=== PATIENT | female | born 1985 | race Caucasian/White ===

== ENCOUNTER 2017-10-12 21:50 | Emergency (ER) | payer OTHER ==
[~2017-10-12] VITALS: Ht 154.9 cm; Wt 104.5 kg
[~2017-10-12 21:50] MED LIST: BACTRIM DS 8001 TAB PO; CELEXA10 MG PO; CEPHALEXIN500 M1 PO; CHEWABLE CALCI500 MG PO; CHLOR-A-TAB4 MG PO; D-BIOTIN10 MG PO; DEPO MEDROL40 MG/ML IJ; DOXYCYCLINE 10100 MG PO; IMITREX 25MG TA25 MG PO; ISOMETH/DICHLOR1 CAP PO; LEVOXYL0.05 MG; MELOXICAM; MIDRIN 325 MG-11 CAP PO; MULTIVITAMIN1 TA1 PO; MULTIVITAMINS1 TAB PO; NORCO 325 MG-7.1 TAB PO; PREDNISONE10 MG PO; PREDNISONE20 MG PO; VENTOLIN0.09 MG IH
[2017-10-12 22:03] VITALS: BP 140/87; PULSE 86; TEMP 99
[2017-10-12] MEDS ORDERED: PRILOTC PO (22:25)
[2017-10-12] MEDS ORDERED: SYNTHROID0.05 MG/TA PO (22:25)
[2017-10-12] MEDS ORDERED: CELEXA 20MG20 MG/TAB PO (22:25)
[2017-10-12] MEDS ORDERED: NATURE'S BLE1000 MCG PO (22:26)
[2017-10-12] MEDS ORDERED: COUGH & COLD 41 TAB PO (22:27)
[2017-10-12] MEDS ORDERED: VIACTIVE PO (22:27)
[2017-10-12] MEDS ORDERED: MULTI VITAMINS1 TAB PO (22:28)
[2017-10-12] MEDS ORDERED: ZITHROMAX 250M250 MG PO (22:38)
== END 2017-10-12 22:47 | disposition home or self-care (01) ==
LOC: COL.ER 21:50
DX: J40 Bronchitis, not specified as acute or chronic (principal); G43.909 Migraine, unspecified, not intractable, without status migrainosus; F17.210 Nicotine dependence, cigarettes, uncomplicated; Z87.42 Personal history of other diseases of the female genital tract; Z98.890 Other specified postprocedural states

== ENCOUNTER 2018-07-04 07:59 | Emergency (ER) | payer BC ==
[~2018-07-04] VITALS: Ht 154.9 cm; Wt 110.0 kg
[~2018-07-04 07:59] MED LIST changes: +CELEXA 20MG20 MG/TAB PO; +COUGH & COLD 41 TAB PO; +MULTI VITAMINS1 TAB PO; +NATURE'S BLE1000 MCG PO; +PRILOTC PO; +SYNTHROID0.05 MG/TA PO; +VIACTIVE PO; +ZITHROMAX 250M250 MG PO
[2018-07-04 08:01] VITALS: TEMP 98.7
[2018-07-04] MEDS ORDERED: BIOTIN800 MCG PO (08:11)
[2018-07-04] MEDS ORDERED: WOMEN'S DAILY F1 TAB PO (08:11)
[2018-07-04] MEDS ORDERED: PHENERGAN 25 TA25 MG PO (08:12)
[2018-07-04] MEDS ORDERED: MAXALT MLT5 MG PO (08:12)
[2018-07-04] MEDS ORDERED: CELEXA 20MG20 MG/TAB PO (08:12)
[2018-07-04] MEDS ORDERED: LEVOXYL0.05 MG PO (08:12)
[2018-07-04] MEDS ORDERED: FLONASEALLERGY NS (08:13)
[2018-07-04] MEDS ORDERED: ALAVERT10 M1 (08:13)
[2018-07-04] MEDS ORDERED: NEXPLANON68 MG ID (08:13)
[2018-07-04] MEDS ORDERED: VENTOLIN0.09 MG IH (08:14)
[2018-07-04 08:24] LABS: BASO # 0.1 (0.0-0.2); BASO % 0.5 % (0.0-2.0); EOS # 0.8 (0.0-0.7); EOS % 7.5 % (0-4.0); GRAN # 5.1 (1.4-6.5); GRAN % 50.7 % (42.2-75.2); HEMATOCRIT 41.4 % (37.0-47.0); LYMPH # 3.5 (1.2-3.4); LYMPH % 34.6 % (20.0-51.0); MEAN CELL VOLUME 88 fl (80.0-100.0); MEAN CORPUSCULAR HEMOGLOBIN 30 pg (27.0-31.0); MEAN CORPUSCULAR HGB CONC 34 g/dl (33.0-37.0); MEAN PLATELET VOLUME 10.5 fl (7.4-10.4); MONO # 0.7 (0.1-0.6); MONO % 6.5 % (1.7-9.3); PLATELET COUNT 307 K/mm3 (130-400); RED BLOOD COUNT 4.69 M/mm3 (4.10-5.30); REDCELL DISTRIBUTION WIDTH-CV 14.6 % (11.5-14.5)
[2018-07-04] MEDS ORDERED: AMOXICILLIN/CLA1 TA1 PO (08:29)
[2018-07-04 08:31] LABS: ALBUMIN 4.3 gm/dL (3.5-5.0); BILIRUBIN,TOTAL 0.4 mg/dL (0.0-1.0); CALCIUM 9.1 mg/dL (8.4-10.2); CREATININE, serum 0.76 mg/dL (0.52-1.25); POTASSIUM 4.2 mmol/L (3.4-5.0)
[2018-07-04] MEDS ORDERED: PREDNISONE20 MG PO (11:14)
[2018-07-04 11:47] VITALS: BP 140/72; PULSE 88
== END 2018-07-04 11:47 | disposition home or self-care (01) ==
LOC: COL.ER 07:59
PROVIDERS: Physician Assistant
DX: J45.901 Unspecified asthma with (acute) exacerbation (principal); E03.9 Hypothyroidism, unspecified; G43.909 Migraine, unspecified, not intractable, without status migrainosus; F17.210 Nicotine dependence, cigarettes, uncomplicated; Z79.51 Long term (current) use of inhaled steroids; Z90.89 Acquired absence of other organs; Z98.890 Other specified postprocedural states
CPT/HCPCS: J2930; J7030; J7512

== ENCOUNTER 2018-10-08 19:22 | Inpatient (IN) | payer SELFPAY ==
[~2018-10-08] VITALS: Ht 170.2 cm; Wt 113.8 kg
[~2018-10-08 19:22] MED LIST changes: +ALAVERT10 M1; +AMOXICILLIN/CLA1 TA1 PO; +BIOTIN800 MCG PO; +FLONASEALLERGY NS; +LEVOXYL0.05 MG PO; +MAXALT MLT5 MG PO; +NEXPLANON68 MG ID; +PHENERGAN 25 TA25 MG PO; +WOMEN'S DAILY F1 TAB PO
[2018-10-08] MEDS ORDERED: DEPO-PROVER150 MG/M1 IM (20:05)
[2018-10-08] MEDS ORDERED: RT ADVAIR 128 DISKUS IH ×2 (20:07→21:46)
[2018-10-08] MEDS ORDERED: CLARITIN 1010 MG/TAB PO (20:07)
[2018-10-08] MEDS ORDERED: NEB MC (21:46)
[2018-10-08] MEDS ORDERED: ALBUTEROL SULFAT3 M3 IH (21:46)
[2018-10-08 22:59] LABS: ARTERIAL BLD GAS O2 SATURATION 89.5 % (92-100); ARTERIAL BLD GAS TCO2 CT 21.1; ARTERIAL BLOOD GAS HCO3 20.2 meq/L (22-26); ARTERIAL BLOOD GAS PCO2 30.9 mmHg (35-45); ARTERIAL BLOOD GAS PO2 57.7 mmHg (80-100); ARTERIAL BLOOD GAS pH 7.43 (7.35-7.45)
[2018-10-09] VITALS (1022 sets, daily range): BP systolic 103–150; BP diastolic 47–85; PULSE 97–115; TEMP 97.9–98.9; O2SAT 82–97
[2018-10-09 00:46] LABS: HEMATOCRIT 40.6 % (37.0-47.0); HEMOGLOBIN 13.6 g/dl (12.5-16.0); MEAN CELL VOLUME 89 fl (80.0-100.0); MEAN CORPUSCULAR HEMOGLOBIN 30 pg (27.0-31.0); MEAN CORPUSCULAR HGB CONC 34 g/dl (33.0-37.0); MEAN PLATELET VOLUME 10.4 fl (7.4-10.4); PLATELET COUNT 298 K/mm3 (130-400); RED BLOOD COUNT 4.59 M/mm3 (4.10-5.30); REDCELL DISTRIBUTION WIDTH-CV 14.2 % (11.5-14.5)
[2018-10-09 01:00] LABS: ALBUMIN 4.5 gm/dL (3.5-5.0); BILIRUBIN,TOTAL 0.5 mg/dL (0.0-1.0); CALCIUM 9.9 mg/dL (8.4-10.2); CREATININE, serum 0.83 mg/dL (0.52-1.25); POTASSIUM 4.1 mmol/L (3.4-5.0); TOTAL PROTEIN 7.9 gm/dL (6.4-8.2)
[2018-10-09 01:38] LABS: BAND 4 % (0-10); LYMPHOCYTE 5 % (20.0-51.0); NEUTROPHILS 90 % (42.0-75.2); PLATELET ESTIMATE NORMAL (NORMAL)
[2018-10-09 01:41] LABS: SCHISTOCYTES 1+
[2018-10-09 04:08] LABS: ARTERIAL BLD GAS O2 SATURATION 96.1 % (92-100); ARTERIAL BLD GAS TCO2 CT 21.7; ARTERIAL BLOOD GAS BASE EXCESS -3.1 (-2-2); ARTERIAL BLOOD GAS HCO3 20.7 meq/L (22-26); ARTERIAL BLOOD GAS PCO2 33.2 mmHg (35-45); ARTERIAL BLOOD GAS PO2 86.9 mmHg (80-100); ARTERIAL BLOOD GAS pH 7.41 (7.35-7.45)
[2018-10-09 05:25] LABS: HEMATOCRIT 38.7 % (37.0-47.0); HEMOGLOBIN 12.9 g/dl (12.5-16.0); MEAN CELL VOLUME 89 fl (80.0-100.0); MEAN CORPUSCULAR HEMOGLOBIN 30 pg (27.0-31.0); MEAN CORPUSCULAR HGB CONC 33 g/dl (33.0-37.0); MEAN PLATELET VOLUME 10.7 fl (7.4-10.4); PLATELET COUNT 279 K/mm3 (130-400); RED BLOOD COUNT 4.37 M/mm3 (4.10-5.30); REDCELL DISTRIBUTION WIDTH-CV 14.2 % (11.5-14.5)
[2018-10-09 05:38] LABS: CALCIUM 9.5 mg/dL (8.4-10.2); CREATININE, serum 0.84 mg/dL (0.52-1.25); POTASSIUM 4.3 mmol/L (3.4-5.0)
[2018-10-09 06:52] LABS: BAND 11 % (0-10); LYMPHOCYTE 13 % (20.0-51.0); NEUTROPHILS 75 % (42.0-75.2); PLATELET ESTIMATE NORMAL (NORMAL)
[2018-10-10 00:25] VITALS: BP 103/38; PULSE 116
[2018-10-10 03:22] VITALS: BP 108/41; PULSE 123; TEMP 98.2
[2018-10-10 07:39] VITALS: BP 109/51; PULSE 125; TEMP 98.4
[2018-10-10 12:10] VITALS: BP 137/79; PULSE 107; TEMP 98.8
[2018-10-10] MEDS ORDERED: DOXYCYCLINE 10100 MG PO (14:06)
[2018-10-10] MEDS ORDERED: PERFOROMIS20 MCG/2 M IH (14:07)
[2018-10-10] MEDS ORDERED: PREDNISONE20 MG PO (14:09)
[2018-10-10] MEDS ORDERED: NEB MC (15:04)
[2018-10-10] MEDS ORDERED: COMBIRESP IH (16:26)
[2018-10-10] MEDS ORDERED: RT ADVAIR 228 DISKUS IH (16:30)
== END 2018-10-10 15:32 | disposition home or self-care (01) | DRG 189 ==
LOC: COL.ER 19:22 → ICU 23:17 → MEDICAL 10-09 19:12
PROVIDERS: Nurse Practitioner Family; Physician Assistant
DX: J96.01 Acute respiratory failure with hypoxia (principal); J45.901 Unspecified asthma with (acute) exacerbation; F17.210 Nicotine dependence, cigarettes, uncomplicated; R73.9 Hyperglycemia, unspecified; B97.4 Respiratory syncytial virus as the cause of diseases classified elsewhere
CPT/HCPCS: 99223-AI; 99239; G0463; J1815; J2930; J7030; J7512

== ENCOUNTER 2019-02-01 14:31 | Emergency (ER) | payer OTHER ==
[~2019-02-01] VITALS: Ht 154.9 cm; Wt 111.8 kg
[~2019-02-01 14:31] MED LIST changes: +AIRDUO RESPICL1 EAC1 IH; +ALBUTEROL SULFAT3 M3 IH; +CLARITIN 1010 MG/TAB PO; +COMBIRESP IH; +DEPO-PROVER150 MG/M1 IM; +LEVAQUIN 750MG750 M1 PO; +NEB MC; +NICODERM C14 MG/PATC TD; +PERFOROMIS20 MCG/2 M IH; +RT ADVAIR 128 DISKUS IH; +RT ADVAIR 228 DISKUS IH; +RT ADVAIR HFA 2312 G IH; +SPIRIVA RE2.5 MCG/Ac IH
[2019-02-01 14:34] VITALS: BP 138/85; TEMP 97.9
[2019-02-01] MEDS ORDERED: FLOXIN 10 ML10 ML OT (14:48)
[2019-02-01] MEDS ORDERED: AMOXICILLIN 8751 TAB PO (14:48)
[2019-02-01 15:03] VITALS: PULSE 80
== END 2019-02-01 15:05 | disposition home or self-care (01) ==
LOC: COL.ER 14:31
DX: H73.011 Bullous myringitis, right ear (principal); J45.909 Unspecified asthma, uncomplicated; F32.9 Major depressive disorder, single episode, unspecified; G43.909 Migraine, unspecified, not intractable, without status migrainosus; Z90.89 Acquired absence of other organs; Z79.51 Long term (current) use of inhaled steroids

== ENCOUNTER 2020-08-20 19:17 | Emergency (ER) | payer BC ==
[~2020-08-20] VITALS: Ht 154.9 cm; Wt 109.1 kg
[~2020-08-20 19:17] MED LIST changes: +AMOXICILLIN 8751 TAB PO; +FLOXIN 10 ML10 ML OT
[2020-08-20 19:24] VITALS: TEMP 98.8
[2020-08-20 20:15] LABS: COLLECTION METHOD CLEAN CATCH
[2020-08-20 20:21] LABS: ALBUMIN 4.3 gm/dL (3.5-5.0); BILIRUBIN,TOTAL 0.3 mg/dL (0.0-1.0); C-REACTIVE PROTEIN 0.6 mg/dL (0.0-0.9); CALCIUM 8.9 mg/dL (8.4-10.2); CREATININE, serum 0.82 (0.52-1.25); POTASSIUM 3.6 mmol/L (3.4-5.0); TOTAL PROTEIN 7.5 gm/dL (6.4-8.2)
[2020-08-20 20:23] LABS: BASO # 0.1 (0.0-0.2); BASO % 0.5 % (0.0-2.0); EOS # 0.6 (0.0-0.7); EOS % 5.1 % (0-4.0); GRAN # 5.2 (1.4-6.5); GRAN % 47.8 % (42.2-75.2); HEMATOCRIT 37.7 % (37.0-47.0); HEMOGLOBIN 12.7 g/dl (12.5-16.0); LYMPH # 4.2 (1.2-3.4); LYMPH % 39.1 % (20.0-51.0); MEAN CELL VOLUME 89 fl (80.0-100.0); MEAN CORPUSCULAR HEMOGLOBIN 30 pg (27.0-31.0); MEAN CORPUSCULAR HGB CONC 34 g/dl (33.0-37.0); MEAN PLATELET VOLUME 10.7 fl (7.4-10.4); MONO # 0.8 (0.1-0.6); MONO % 7.2 % (1.7-9.3); PLATELET COUNT 294 K/mm3 (130-400); RED BLOOD COUNT 4.22 M/mm3 (4.10-5.30); REDCELL DISTRIBUTION WIDTH-CV 14.3 % (11.5-14.5)
[2020-08-20 20:54] LABS: MUCOUS Present /lpf; PH 5 (5-8); URINE APPEARANCE Hazy; URINE BACTERIA Rare /hpf; URINE BILIRUBIN Negative (NEGATIVE); URINE BLOOD 1+ (NEGATIVE); URINE COLOR Yellow; URINE GLUCOSE Negative (NEGATIVE); URINE KETONE Negative (NEGATIVE); URINE LEUKOCYTE ESTERASE Negative (NEGATIVE); URINE NITRATE Negative (NEGATIVE); URINE PROTEIN(semi-quant) 1+ (NEGATIVE); URINE UROBILINOGEN Negative (NEGATIVE)
[2020-08-21] MEDS ORDERED: PERCOCET 325 MG1 TA2 PO (00:27)
[2020-08-21] MEDS ORDERED: CEFTIN 250250 MG/TAB PO (00:27)
[2020-08-21 00:30] VITALS: BP 129/78; PULSE 88
== END 2020-08-21 00:30 | disposition home or self-care (01) ==
LOC: COL.ER 19:17
PROVIDERS: Nurse Practitioner
DX: N20.0 Calculus of kidney (principal); F17.200 Nicotine dependence, unspecified, uncomplicated; Z90.710 Acquired absence of both cervix and uterus
CPT/HCPCS: J0696; J1170; J1885; J2405; J7030; Q9967

== ENCOUNTER 2021-05-07 11:04 | Emergency (ER) | payer BC ==
[~2021-05-07] VITALS: Ht 154.9 cm; Wt 112.3 kg
[~2021-05-07 11:04] MED LIST changes: +CEFTIN 250250 MG/TAB PO; +PERCOCET 325 MG1 TA2 PO
[2021-05-07 11:31] VITALS: PULSE 82; TEMP 98.1
[2021-05-07] MEDS ORDERED: CEPHALEXIN500 M1 PO (12:33)
[2021-05-07 12:48] VITALS: BP 117/78
== END 2021-05-07 12:48 | disposition home or self-care (01) ==
LOC: COL.ER 11:04
DX: T81.49XA Infection following a procedure, other surgical site, initial encounter (principal); F32.9 Major depressive disorder, single episode, unspecified; F41.9 Anxiety disorder, unspecified; F17.210 Nicotine dependence, cigarettes, uncomplicated; Z79.899 Other long term (current) drug therapy

== ENCOUNTER 2023-01-15 10:33 | Emergency (ER) | payer OTHER ==
[~2023-01-15] VITALS: Ht 154.9 cm; Wt 113.6 kg
[2023-01-15 10:59] VITALS: TEMP 98.1
[2023-01-15] MEDS ORDERED: NORCO 325 MG-51 TAB PO (12:04)
[2023-01-15] MEDS ORDERED: MEDROL 4MG DOSPA4 MG PO (12:04)
[2023-01-15 12:13] VITALS: BP 155/71; PULSE 82
== END 2023-01-15 12:14 | disposition home or self-care (01) ==
LOC: COL.ER 10:33
DX: M54.42 Lumbago with sciatica, left side (principal); I10 Essential (primary) hypertension; F17.200 Nicotine dependence, unspecified, uncomplicated

== ENCOUNTER 2024-07-19 13:32 | Emergency (ER) | payer OTHER ==
[~2024-07-19] VITALS: Ht 154.9 cm; Wt 115.5 kg
[~2024-07-19 13:32] MED LIST changes: +MEDROL 4MG DOSPA4 MG PO; +NORCO 325 MG-51 TAB PO
[2024-07-19 13:42] VITALS: BP 166/104; TEMP 98.5
[2024-07-19] MEDS ORDERED: Amoxicillin 500 MG CAP PO ONE (14:00)
[2024-07-19] MEDS ORDERED: AMOXICILLIN 50500 MG PO (14:02)
[2024-07-19 14:25] VITALS: PULSE 80
== END 2024-07-19 14:25 | disposition home or self-care (01) ==
LOC: COL.ER 13:32
DX: H66.91 Otitis media, unspecified, right ear (principal); U07.1 COVID-19; R05.9 Cough, unspecified; R09.81 Nasal congestion; Z73.0 Burn-out